=== PATIENT | male | born 1975 | race Caucasian/White ===

== ENCOUNTER 2016-06-13 19:19 | Emergency (ER) | payer OTHER | END 2016-06-13 21:00 | disposition home or self-care (01) | DX: S61.411A Laceration without foreign body of right hand, initial encounter (principal); W26.0XXA Contact with knife, initial encounter; Y93.G1 Activity, food preparation and clean up; Y92.010 Kitchen of single-family (private) house as the place of occurrence of the external cause; R03.0 Elevated blood-pressure reading, without diagnosis of hypertension ==

== ENCOUNTER 2017-10-22 09:05 | Outpatient (CLI) | payer OTHER | END 2017-10-22 09:06 | disposition home or self-care (01) | LOC: SC 09:05 | PROVIDERS: ATTEND Nurse Practitioner Family | DX: G47.33 Obstructive sleep apnea (adult) (pediatric) (principal) | CPT/HCPCS: 99212; 99214 ==

== ENCOUNTER 2017-12-25 08:48 | Outpatient (CLI) | payer OTHER | END 2017-12-25 08:49 | disposition home or self-care (01) | LOC: SC 08:48 | PROVIDERS: ATTEND Nurse Practitioner Family | DX: G47.33 Obstructive sleep apnea (adult) (pediatric) (principal) | CPT/HCPCS: 99212; 99214 ==

== ENCOUNTER 2018-03-11 08:46 | Outpatient (CLI) | payer OTHER | END 2018-03-11 08:47 | disposition home or self-care (01) | LOC: SC 08:46 | PROVIDERS: ATTEND Nurse Practitioner Family | DX: G47.33 Obstructive sleep apnea (adult) (pediatric) (principal) | CPT/HCPCS: 99212; 99214 ==

== ENCOUNTER 2020-06-02 11:41 | Emergency (ER) | payer OTHER ==
[2020-06-02 11:52] VITALS: BP 130/67
--- OUTSIDE RECORDS SUMMARY | 2020-06-08 23:49 | EXTERNAL MEDICAL SUMMARY RPT | Continuity of Care Document ---
:1975 Demographics Phone Unavailable Preferred Language Unknown Marital Status Unknown Orthodox Affiliation Unknown Race Unknown Ethnic Group Unknown Author Organization [facility] Address [address] [place] [address] Phone Social History date description facility [phone]
== END 2020-06-02 12:54 | disposition left against medical advice (07) ==
LOC: ED 11:41
DX: Z53.21 Procedure and treatment not carried out due to patient leaving prior to being seen by health care provider (principal)

== ENCOUNTER 2021-11-22 15:33 | Outpatient (CLI) | payer OTHER ==
[2021-11-22 16:18] VITALS: BP 128/80
--- NOTE | 2021-11-22 16:18 | SLEEP CARE CONSULTATION ---
Information from patient questionnaire entered by Ann Marie Santana MA. I have reviewed and concur with the information entered by Ann Marie Santana MA. This document represents the service I personally performed and the decisions made by me, Nereida Watson ARNP. History of Present Illness Service Date and Time: 11/22/2021 1533 Reason for Visit: Previously diagnosed sleep apnea, sleep apnea on CPAP therapy, Re-establish care Chief Complaint: reports: Other (Update supplies) Date of Onset: 10 YEARS Usual bedtime: 10PM Time it takes to fall asleep: 5MIN Snores at night: Yes Observed to quit breathing while asleep: Yes Sleeps alone due to snoring: Yes Reasons for waking at night: reports: Other (UNKNOWN) Toss, Turn, or Twitch while sleeping: Yes Recalls having dreams: Yes Usually gets out of bed at: 430AM Feels refreshed in the morning: No Morning headache: Yes Sleepy or fatigued during the day: Yes Ever fallen asleep while driving: No Takes day naps: Yes Dreams during day naps: Yes Prior sleep studies: Yes Year and Where: 2009 [facility] Type of Sleep Study: Polysomnography Additional HPI information: MARCI RODRIGUEZ was previously diagnosed to have severe, AHI 66.8, obstructive sleep apnea-hypopnea syndrome and comes in today to re-establish care for CPAP therapy. He was last seen in our office in March of 2018. He states his mask is leaking because the gasket on the full face mask has a hole in it. He has not been able to use his CPAP since. He needs supplies. - Parasomnia Symptoms Ever been unable to move upon waking from sleep: No Walks in sleep: No Talks in sleep: No Ever acted out dreams in sleep: No Ever felt weak in the knees when startled or emotional: No Bothered by creepy, crawly, restless sensations in legs: No Problems with memory or concentration: Yes CPAP Compliance Data - Data Reviewed with Patient Average duration of nightly device use: 5 hours 18 minutes Compliance rate %: 58 (137/180 days used; 02/04/2018-08/02/2018) Current pressure setting (cmH2O): 6-12 Average residual AHI: 0.4 Average large leak: 0.7 L/min Compliance data discussion: He states he had last been getting his supplies from [facility]. He is using a full face Airfit F20 mask. He needs supplies because he has not been getting regular supplies for about 6 months. Subjective Missed days of use due to: reports: mask issues (mask liner has hole) Patient concerns: denies: aerophagia, mask discomfort, air blowing in eyes, mask leak noise, condensation in mask/hose, nasal congestion, dry mouth, nose, throat, epistaxis Observed to snore while using device: No Current pressure setting perceived as: comfortable On therapy, patient: reports: sleeping better, awakening more refreshed, being more awake and alert during the day, more rested overall. denies: drowsiness while driving Current Garner Sleepiness Scale score: 18 (11/2021) Social History The patient's occupation is a AM. Patient is and lives in [place]. Have you smoked in the past 12 months: No Cigarettes per day (20/pack): 18 Years of smokin Quit date: 2000 Smoking Pack Years: 9.0 Alcohol use: Yes Alcohol amount and frequency: 2-5 PER WEEK Caffeine use: Yes Caffeine amount and frequency: 1-2 DAILY Family History Family history of sleep disordered breathing: Yes Family Hx Sleep Apnea: Father: Snoring Allergies and Home Medications Known drug allergies: No Drug allergies reviewed: Yes (NKDA) Home medication list reviewed: Yes (Multivitamin; Vitamin D3) Allergy and home medication list: Allergies No Known Drug Allergies Allergy (Verified 06/02/20 11:49) Review of Systems Weight gain over past 5 years: 40 Gastrointestinal: reports: heartburn Musculoskeletal: reports: back pain Physical Exam Vital signs obtained and entered by: ABEBE DUGAN Blood Pressure: 128/80 (LEFT ARM) Cuff size: long Heart Rate: 85 O2 Saturation: 97 Height: 6 ft 1 in Weight: 301 lb Body Mass Index: 39.6 BMI Classification: Obese Neck circumference: 19.5 Heart: regular rate and rhythm Lungs: clear bilaterally Impression and Plan 1. Obstructive Sleep Apnea-Hypopnea Syndrome, severe, with fair treatment compliance and good apnea control. On CPAP therapy, the patient has better sleep quality and is more rested overall. He has unable to use his CPAP since July because his last F20 full face mask got a hole in it and is leaking and won't seal. He has not gotten supplies for about 6 months. His compliance was under 70%. I provided patient with a Nasal pillow Nuance Pro mask so he can use his CPAP and increase his compliance. I will have him come in for a compliance visit and then we can order him a new device. His CPAP was last updated in 2015. He voiced understanding and agreement. Patient's apnea severity and rationale for treatment to reduce apnea, improve sleep quality and reduce cardiovascular and cerebrovascular events was reviewed. 2. Obesity, unspecified. Currently patients BMI is 39.6. Obesity increases the risk of apnea, CPAP pressure requirements and overall health risks especially cardiovascular and diabetes. Thus patient is advised to lose weight. * Continue auto CPAP pressure at 6-12 cmH2O * Update supplies * Notify me if snoring with mask or feeling that the pressure is too much or too little * Attempt to lose weight * Call this office if any problems using CPAP * Return for follow up in 1-2 months to recheck compliance, or sooner if concerns arise Counseling Topics: Spare mask, Weight loss health impact Visit Type: In Office Time Spent with Patient (minutes): 33 Provider Statement: I spent 100% of the Face to Face Visit with the patient with greater than 50% spent counseling the patient and coordination of care.
== END 2021-11-22 15:34 | disposition home or self-care (01) ==
LOC: SC 15:33
PROVIDERS: ATTEND Nurse Practitioner Family
DX: G47.33 Obstructive sleep apnea (adult) (pediatric) (principal); E66.9 Obesity, unspecified; Z68.39 Body mass index [BMI] 39.0-39.9, adult; Z87.891 Personal history of nicotine dependence
CPT/HCPCS: 99203; 99212

== ENCOUNTER 2021-12-20 15:30 | Outpatient (CLI) | payer OTHER ==
[2021-12-20 16:51] VITALS: BP 118/76
--- NOTE | 2021-12-20 16:51 | SLEEP CARE CONSULTATION ---
Information from patient questionnaire entered by Sandra Escobar. I have reviewed and concur with the information entered by Sandra Escobar. This document represents the service I personally performed and the decisions made by me, Nereida Watson ARNP. History of Present Illness Service Date and Time: 12/20/2021 1530 Previous diagnosis: Very Severe, Obstructive Sleep Apnea-Hypopnea Syndrome AHI: 66.8 (03/2009) Reason for follow up: one month (F/U RESMED) Equipment type: CPAP (ResMed) Equipment obtained from: Other ([employer], getting supplies as needed) Mask style: Full face Mask brand: Resmed (F20) Backup mask available: Yes (other mask) Last cushion change: 2 weeks Prior sleep studies: Yes HPI additional information: MARCI RODRIGUEZ was diagnosed to have very severe, AHI 66.8, obstructive sleep apnea-hypopnea syndrome and returned today for CPAP therapy one month follow-up. CPAP Compliance Data - Data Reviewed with Patient Average duration of nightly device use: 4hrs 25 min Compliance rate %: 47 (11/20/21-12/19/21; 23/30 days) Current pressure setting (cmH2O): 6-12 Average residual AHI: 0.5 Central apnea: 0.0 Obstructive apnea: 0.1 Subjective Missed days of use due to: reports: mask issues Patient concerns: reports: mask discomfort (nasal pillow mask hurt his nose). denies: aerophagia, air blowing in eyes, mask leak noise, condensation in mask/hose, nasal congestion, dry mouth, nose, throat, epistaxis Observed to snore while using device: No Current pressure setting perceived as: comfortable On therapy, patient: reports: sleeping better, awakening more refreshed, being more awake and alert during the day, more rested overall. denies: drowsiness while driving Current Sleepy Eye Sleepiness Scale score: 11 (12/20/2021) Allergies and Home Medications Drug allergies reviewed: Yes (NKDA) Home medication list reviewed: Yes (no changes) Review of Systems Review of systems same as previous: Yes (no changes) Physical Exam Vital signs obtained and entered by: SANDRA Marcum MA Blood Pressure: 118/76 (LEFT ARM) Cuff size: long Heart Rate: 80 O2 Saturation: 95 Height: 6 ft 1 in Weight: 270 lb 6.4 oz Body Mass Index: 35.6 BMI Classification: Obese Impression and Plan 1. Obstructive Sleep Apnea-Hypopnea Syndrome, very severe, with fair treatment compliance and good apnea control. On CPAP therapy, the patient has better sleep quality and is more rested overall. Patient has been able to bring up his compliance. He needs more supplies and I will write to update his machine and supplies and send this order to his [employer] company. I will follow-up with him after he obtains his new device. He is to let us know if there are any problems with getting a new machine. Patient's apnea severity and rationale for treatment to reduce apnea, improve sleep quality and reduce cardiovascular and cerebrovascular events was reviewed. 2. Obesity, unspecified. Currently patients BMI is 35.6. Obesity increases the risk of apnea, CPAP pressure requirements and overall health risks especially cardiovascular and diabetes. Thus patient is advised to lose weight. * Continue auto CPAP pressure at 6-12 cmH2O * Update machine and supplies * Notify me if snoring with mask or feeling that the pressure is too much or too little * Attempt to lose weight * Call this office if any problems using CPAP * Return for follow up one month after he obtains his new device, or sooner if concerns arise Counseling Topics: Spare mask, Weight loss health impact Visit Type: In Office Time Spent with Patient (minutes): 20 Provider Statement: I spent 100% of the Face to Face Visit with the patient with greater than 50% spent counseling the patient and coordination of care.
== END 2021-12-20 15:31 | disposition home or self-care (01) ==
LOC: SC 15:30
PROVIDERS: ATTEND Nurse Practitioner Family
DX: G47.33 Obstructive sleep apnea (adult) (pediatric) (principal); E66.9 Obesity, unspecified; Z68.35 Body mass index [BMI] 35.0-35.9, adult
CPT/HCPCS: 99212; 99213

== ENCOUNTER 2022-10-04 15:23 | Outpatient (CLI) | payer OTHER | END 2022-10-04 15:24 | disposition home or self-care (01) | LOC: SC 15:23 | PROVIDERS: ATTEND Nurse Practitioner Family | DX: Z53.9 Procedure and treatment not carried out, unspecified reason (principal) ==